=== PATIENT | female | born 1970 | race Caucasian/White ===

== ENCOUNTER 2024-11-03 21:08 | Emergency (ER) | payer OTHER, SELFPAY ==
[2024-11-03 21:13] VITALS: BP 149/81
[2024-11-03] MEDS: LET TOPICAL ANESTHETIC GEL 3 ML TOPICAL (23:18)
[2024-11-03 23:30] VITALS: BP 117/62
[2024-11-03 23:31] VITALS: BMI 18.3
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
[2024-11-04] MEDS: ADACEL 0.5 ML IM (01:06)
[2024-11-04 01:47] VITALS: BP 118/68
== END 2024-11-04 01:45 | disposition home or self-care (01) ==
LOC: EMR 21:08
PROVIDERS: EMERGENCY PHYSICIAN Emergency Medicine; FAMILY PHYSICIAN Family Medicine
DX: S09.90XA Unspecified injury of head, initial encounter (principal); S01.81XA Laceration without foreign body of other part of head, initial encounter; V18.4XXA Pedal cycle driver injured in noncollision transport accident in traffic accident, initial encounter; Y93.55 Activity, bike riding; Z23 Encounter for immunization; Z90.49 Acquired absence of other specified parts of digestive tract
CPT/HCPCS: 99283; 12001; 90471; 70450; 90715